=== PATIENT | male | born 1990 | race Caucasian/White ===

== ENCOUNTER 2024-08-26 15:01 | Emergency (ER) | payer MEDICAID ==
[~2024-08-26] VITALS: Ht 177.8 cm; Wt 8.2 kg
[2024-08-26 16:15] VITALS: BP 159/104; TEMP 98.3; O2SAT 99
== END 2024-08-26 16:15 | disposition home or self-care (01) ==
LOC: ER 15:13
DX: F32.A Depression, unspecified (principal)